=== PATIENT | male | born 1980 | race Two or more races ===

== ENCOUNTER 2020-03-09 11:23 | Inpatient (IN) | payer OTHER ==
[~2020-03-09] VITALS: Ht 177.8 cm; Wt 90.7 kg
[2020-03-22] MEDS ORDERED: FLAGYL500MG PO (15:31)
[2020-03-22] MEDS ORDERED: FAMOTIDINE20 MG PO (15:31)
[2020-03-22] MEDS ORDERED: INTESTINEX680 M1 PO (15:31)
== END 2020-03-22 22:03 | disposition home or self-care (01) | DRG 391 ==
LOC: ER 11:23 → SEC-K 13:31 → SURG 13:31
PROVIDERS: ADMIT Surgery; ATTEND Internal Medicine Geriatric Medicine
PROC: 0W9F30Z Drainage of Abdominal Wall with Drainage Device, Percutaneous Approach (ICD-10-PCS; principal; 2020-03-10)
PROC: 05HB33Z Insertion of Infusion Device into Right Basilic Vein, Percutaneous Approach (ICD-10-PCS; 2020-03-10)
PROC: 3E0336Z Introduction of Nutritional Substance into Peripheral Vein, Percutaneous Approach (ICD-10-PCS; 2020-03-10)
PROC: BW21ZZZ Computerized Tomography (CT Scan) of Abdomen and Pelvis (ICD-10-PCS; 2020-03-15)
PROC: BW21Y0Z Computerized Tomography (CT Scan) of Abdomen and Pelvis using Other Contrast, Unenhanced and Enhanced (ICD-10-PCS; 2020-03-15)
PROC: 0DBN8ZX Excision of Sigmoid Colon, Via Natural or Artificial Opening Endoscopic, Diagnostic (ICD-10-PCS; 2020-03-16)
PROC: BW21ZZZ Computerized Tomography (CT Scan) of Abdomen and Pelvis (ICD-10-PCS; 2020-03-19)
PROC: BW21Y0Z Computerized Tomography (CT Scan) of Abdomen and Pelvis using Other Contrast, Unenhanced and Enhanced (ICD-10-PCS; 2020-03-19)
DX: K57.20 Diverticulitis of large intestine with perforation and abscess without bleeding (principal); K65.1 Peritoneal abscess; K63.2 Fistula of intestine; D72.828 Other elevated white blood cell count; Z20.828 Contact with and (suspected) exposure to other viral communicable diseases; B96.29 Other Escherichia coli [E. coli] as the cause of diseases classified elsewhere; B96.89 Other specified bacterial agents as the cause of diseases classified elsewhere; B95.4 Other streptococcus as the cause of diseases classified elsewhere; B96.6 Bacteroides fragilis [B. fragilis] as the cause of diseases classified elsewhere

== ENCOUNTER 2020-05-24 11:00 | Inpatient (IN) | payer OTHER ==
[~2020-05-24] VITALS: Ht 177.8 cm; Wt 92.5 kg
[~2020-05-24 11:00] MED LIST: FAMOTIDINE20 MG PO; FLAGYL500MG PO; INTESTINEX680 M1 PO
[2020-06-03] MEDS ORDERED: HYOSCYAMINE0.125 M1 SL (10:00)
[2020-06-03] MEDS ORDERED: FLAGYL500MG PO (10:01)
[2020-06-03] MEDS ORDERED: CIPRO500 MG PO (10:01)
[2020-06-03] MEDS ORDERED: INTESTINEX680 M1 PO (10:01)
[2020-06-03] MEDS ORDERED: OXYC1TAB9 PO (10:01)
[2020-06-03] MEDS ORDERED: PROTONIX40 MG PO (10:01)
== END 2020-06-03 15:44 | disposition home or self-care (01) | DRG 329 ==
LOC: SURH 05-31 07:59 → O/R 05-31 07:59 → SURH 05-31 11:00
PROVIDERS: ADMIT Surgery; ATTEND Surgery
PROC: 0DBN4ZZ Excision of Sigmoid Colon, Percutaneous Endoscopic Approach (ICD-10-PCS; 2020-05-31)
PROC: 0DJD8ZZ Inspection of Lower Intestinal Tract, Via Natural or Artificial Opening Endoscopic (ICD-10-PCS; 2020-05-31)
PROC: 0DTP4ZZ Resection of Rectum, Percutaneous Endoscopic Approach (ICD-10-PCS; principal; 2020-05-31 13:45)
DX: K57.20 Diverticulitis of large intestine with perforation and abscess without bleeding (principal); K65.8 Other peritonitis; B96.20 Unspecified Escherichia coli [E. coli] as the cause of diseases classified elsewhere